=== PATIENT | male | born 1980 | race Caucasian/White ===

== ENCOUNTER 2017-02-05 10:46 | Emergency (ER) | payer BC, OTHER ==
[~2017-02-05] VITALS: Ht 167.6 cm; Wt 100.0 kg
[2017-02-05 10:48] VITALS: Ht 167.6 cm; Wt 100.0 kg
[2017-02-05] MEDS ORDERED: HYDROCODONE/APAP (10/325) TAB PO ONE (11:30)
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
--- NOTE | 2017-02-05 13:02 | RADRPT ---
PROCEDURE: XR Lumbar Spine. CLINICAL INDICATION: Lumbar spine pain. TECHNIQUE: AP, lateral, and cone-down lateral view of the lumbar spine were obtained. COMPARISON: No prior studies are available for comparison. FINDINGS: The alignment of the lumbar spine is within normal limits. The vertebral body heights and marrow de nsity are normal in appearance. There are anterior osteophytes at L5-S1 with moderate disc space na rrowing and associated discogenic endplate changes. There is preservation of the remaining interver tebral disc spaces. There is moderate facet spondylosis at L4-5 and L5-S1 with associated foraminal narrowing L5-S1. The remaining neural foramina appear patent. The paraspinal soft tissues unremar kable. IMPRESSION: 1. Moderate degenerative disc disease at L5-S1. 2. Moderate facet spondylosis at L5-S1 with associated neural foraminal narrowing. 3. No evidence of fracture. RPTAT: DD .Chadd Givens MD, MD Date Time Electronically viewed and signed by .Chadd Givens MD, on 02/05/2017 13:01 .S/
[2017-02-05] MEDS ORDERED: KETOROLAC 60 MG INJ IM STA (13:09)
[2017-02-05] MEDS ORDERED: HYDR-902 PO (13:11)
--- NOTE | 2017-02-05 13:14 | RADRPT ---
PROCEDURE: XR Knee. CLINICAL INDICATION: Left knee pain. TECHNIQUE: AP, lateral and tunneled of the left knee were obtained. The images reviewed on a PACS workstation. COMPARISON: None. FINDINGS: The distal femur and proximal tibia/fibula are normal in appearance. There is no fracture. The medi al and lateral compartment joint spaces are preserved. There is no abnormal calcification. There i s no joint effusion. Hoffa's fat pad is normal in appearance. There is normal appearance of the pa tellofemoral joint. The soft tissues are unremarkable. IMPRESSION: 1. Normal radiographs of the left knee. No significant degenerative changes or evidence of fracture . RPTAT: DD .Chadd Givens MD, MD Date Time Electronically viewed and signed by .Chadd Givens MD, on 02/05/2017 13:14 .S/
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
[2017-02-05] MEDS ORDERED: METF500T4 PO (13:22)
[2017-02-05 14:43] VITALS: BP 143/70; PULSE 84; RESP 18; TEMP 97.8
== END 2017-02-05 14:45 | disposition home or self-care (01) ==
LOC: E/R 10:46
DX: S49.91XA Unspecified injury of right shoulder and upper arm, initial encounter (principal); S49.92XA Unspecified injury of left shoulder and upper arm, initial encounter; V49.40XA Driver injured in collision with unspecified motor vehicles in traffic accident, initial encounter
CPT/HCPCS: 72040; 72100; 73562; 96372; 99285; J1885